=== PATIENT | female | born 1950 | race Caucasian/White ===

== ENCOUNTER 2020-05-09 12:19 | Emergency (ER) | payer MEDICARE, SELFPAY ==
--- NOTE | ~2020-05-09 | XR_ITS ---
XR thoracic spine 2V 05/09/2020 12:52 Indication: Back pain after lifting boxes recently Procedure: 3 views thoracic spine Comparison: Chest x-ray dated 08/07/2019 Findings: There is mild inferior endplate compression deformity of T8, likely chronic. Mild curvature of the thoracic spine. No acute fracture or traumatic malalignment is identified. Mild thoracic spon dylosis. No paraspinal soft tissue abnormality. Osteopenia. Pedicles intact. There are cholecystectom y clips. Impression: 1: No acute abnormality of the thoracic spine identified. 2: Mild inferior endplate compression deformity of T8, likely chronic. 3: Mild thoracic spondylosis. Reviewed, dictated and finalized at location B. Impression: 1: No acute abnormality of the thoracic spine identified. 2: Mild inferior endplate compression deformity of T8, likely chronic. 3: Mild thoracic spondylosis.
[2020-05-09 12:28] VITALS: BP 177/82; PULSE 81; RESP 18; TEMP 36.7; O2SAT 100
--- NOTE | 2020-05-09 12:45 | PC.NURSE ---
Pt taken to Xray
[2020-05-09] MEDS: diazePAM (*CRX) 5 MG TABLET PO (12:57)
[2020-05-09] MEDS: KETOROLAC (*BKC) 60 MG/2 ML VIAL 30 MG IM (12:57)
--- NOTE | 2020-05-09 13:02 | ED.BACK ---
HPI - Back Pain/Injury General Chief Complaint: Back Pain/Injury Stated Complaint: I hurt my back Time Seen by Provider: 05/09/20 12:33 Source: patient and family Mode of arrival: ambulatory Limitations: no limitations History of Present Illness HPI Narrative: Patient is a 69-year-old female who presents to emergency department for evaluation of mid thoracic back pain that began after lifting an object this weekend had a muscle relaxer called in yesterday by primary care which is helped minimally patient denies injury or trauma otherwise denies similar occurrence in the past pain does not radiate patient presents on no distress appears uncomfortable has not taken anything other than her muscle relaxer today Related Data Allergies Allergy/AdvReac Type Severity Reaction Status Date / Time No Known Allergies Allergy Verified 05/09/20 12:35 Review of Systems Review of Systems: All systems reviewed & are unremarkable except as noted in HPI and below PMFSH Past Medical History Medical History Anxiety Arthritis Bronchitis Chronic back pain Depression HTN (hypertension) Hyperlipidemia Post-menopausal UTI (urinary tract infection) Surgical History Surgical History History of appendectomy History of section History of cholecystectomy History of tubal ligation Ventral hernia Family History Family History Mother Diabetes mellitus Family history of cardiovascular disease Family history of dementia Father Hypertension Cerebrovascular accident Grandparent Family history of Parkinson's disease Sibling Family history of kidney stones Family history of malignant neoplasm of breast in first degree relative Social History Social History Smoking status: Never smoker Gender identity (if verbalized by the patient): Female Exam Narrative: Exam Narrative: GENERAL: Well-appearing, well-nourished, and in no acute distress. HEAD: Normocephalic, atraumatic. EYES: PERRLA and EOMI. ENT: Nares clear, no rhinorrhea or epistaxis. Mucous membranes moist. CHEST: Clear to auscultation. No respiratory distress. No wheezes rales or rhonchi HEART: Regular rate and rhythm. No murmur heard. EXTREMITIES: Normal range of motion. No edema. Mid paraspinal thoracic back pain no cervical or lumbar tenderness SKIN: Warm, dry, no rash. NEURO: No focal deficits. Alert and oriented x3. Cranial nerves II through XII grossly intact PSYCH: Normal mood and affect. Course Course Emergency Course: Patient is a 69-year-old female who presents for low back pain patient's injury seems musculoskeletal in nature no acute fractures seen on imaging patient will be managed with medications advised to follow with primary care felt appropriate for outpatient reevaluation Vital Signs Vital signs: Vital Signs Temperature 98.1 F 05/09/20 12:28 Pulse Rate 81 05/09/20 12:28 Respiratory Rate 18 05/09/20 12:28 Blood Pressure 177/82 H 05/09/20 12:28 Pulse Oximetry 100 05/09/20 12:28 Temperature 98.1 F 05/09/20 12:28 Pulse Rate 81 05/09/20 12:28 Respiratory Rate 18 05/09/20 12:28 Blood Pressure 177/82 H 05/09/20 12:28 Pulse Oximetry 100 05/09/20 12:28 MDM - Back Pain/Injury MDM Narrative Medical decision making narrative: Patients pain is positional in nature and localized to back without signs of cord compression or cauda equina based on neurological exam, skeletal exam and history. No fever or other significant factors to suggest osteomyelitis or spinal epidural abscess. No symptoms or signs to suggest pain is referred from abdominal or / cardiopulmonary sources. No pulsatile masses noted on exam. Patient ambulates with steady gait and is stable for outpatient management given case findings
[2020-05-09] MEDS: LIDOCAINE 5% PATCH 1 PATCH TRANSDERM (13:09)
== END 2020-05-09 13:54 | disposition home or self-care (01) ==
PROVIDERS: Emergency Provider Emergency Medicine; PCP Family Medicine
DX: S29.9XXA Unspecified injury of thorax, initial encounter (principal); M19.90 Unspecified osteoarthritis, unspecified site; I10 Essential (primary) hypertension; E78.5 Hyperlipidemia, unspecified; Z87.440 Personal history of urinary (tract) infections; M47.814 Spondylosis without myelopathy or radiculopathy, thoracic region; X50.0XXA Overexertion from strenuous movement or load, initial encounter
CPT/HCPCS: 72070; 96372; 99283; A9270; J1885

== ENCOUNTER 2020-05-30 15:56 | Emergency (ER) | payer MEDICARE, SELFPAY ==
--- NOTE | ~2020-05-30 | XR_ITS ---
XR chest 2V DATE: 05/30/2020 18:25 INDICATION: Chest pain, shortness of breath, left arm and back pain. Hypertension. TECHNIQUE: PA and lateral views COMPARISON: 08/07/2021 view chest FINDINGS: Large hiatal hernia is again noted as well as cholecystectomy. Cardiomegaly. Aortic ectasia and unfolding. No hilar or mediastinal enlargement is evident. No pulmonary infiltrate or consolidation, pleural effusion or pulmonary vascular congestion or pneumo thorax is detected. Diffuse osteopenia. Moderate anterior wedge compression fracture deformity of T8. IMPRESSION: Large hiatal hernia Cardiomegaly, aortic ectasia and unfolding No active pulmonary disease Status post cholecystectomy Moderate anterior wedge compression fracture deformity of T8, new since 08/07/2019 Diffuse osteopenia Reviewed, dictated and finalized at location A. OR COST ANALYST IMPRESSION: Large hiatal hernia Cardiomegaly, aortic ectasia and unfolding No active pulmonary disease Status post cholecystectomy Moderate anterior wedge compression fracture deformity of T8, new since 08/07/19 20 Diffuse osteopenia
--- NOTE | ~2020-05-30 | CT_ITS ---
EXAMINATION: CTA chest PE protocol DATE: 05/30/2020 22:35 INDICATION: Dyspnea, back pain. Elevated d-dimer. TECHNIQUE: Computed tomography angiography (CTA) of the chest was performed with 100 mL Omnipaque-350 intravenous contrast timed to evaluate the pulmonary arteries. Coronal maximum intensity projection 3D-reconstructions were created by the technologist. Automated exposure control and iterative reconst ruction technique were employed. Exam dose: 419.48 mGy-cm total exam DLP. COMPARISON: 05/30/2022 view chest FINDINGS: There is diagnostic contrast enhancement of the pulmonary arteries and no evidence of pulmo nary embolism. No thoracic aortic aneurysm or dissection. The thyroid gland appears unremarkable. No hilar or mediastinal mass lesion or lymphadenopathy. Cardiomegaly. No pericardial or pleural effusion. There are scattered patchy groundglass areas throughout both lungs which may represent small airways disease. There is mild atelectasis involving predominantly the dependent lower lobes. Large hiatal hernia containing virtually the entire stomach. Moderately prominent elevation of the right leaf of the diaphragm. Status post cholecystectomy. Included upper abdominal structures are otherwise unremarkable. Normal m orphology of the adrenal glands. Moderate anterior wedge compression fracture deformity of T8. Diffuse osteopenia. No suspicious osteo lytic or osteoblastic lesions are identified. IMPRESSION: No evidence of pulmonary embolism Cardiomegaly Scattered patchy groundglass areas throughout both lungs which may represent small airways disease; m ild atelectasis primarily at the dependent lower lobes Large hiatal hernia containing nearly the entire stomach T8 moderate compression fracture deformity Reviewed, dictated and finalized at Location A. Reviewed, dictated and finalized at location A. NEER TECHNICAL STAFF IMPRESSION: No evidence of pulmonary embolism Cardiomegaly Scattered patchy groundglass areas throughout both lungs which may represent sm all airways disease; mild atelectasis primarily at the dependent lower lobes Large hiatal hernia containing nearly the entire stomach T8 moderate compression fracture deformity
[2020-05-30 16:56] VITALS: BP 118/85; PULSE 100; RESP 18; TEMP 37.2; O2SAT 99
--- NOTE | 2020-05-30 17:02 | ECG_ITS ---
Measurements Intervals [place] Rate: 94 P: 11 DC: 176 QRS: -47 QRSD: 91 T: 11 QT: 359 QTc: 450 Interpretive Statements SINUS RHYTHM LEFT ANTERIOR FASCICULAR BLOCK MINIMAL Q WAVES- HIGH LATERAL LEADS ABNORMAL ECG Electronically Signed On 05-31-2020 8:16:55 TOLL BRIDGE ATTENDANT by Tomasz Addison D.O.
[2020-05-30 17:18] LABS: Basophils Percent Auto 0.4 % (0.2-1.2); Eosinophils Absolute Auto 0.1 K/mm3 (0-0.3); Eosinophils Percent Auto 1.3 % (0-4.4); Hematocrit 40.9 % (37.0-47.0); Hemoglobin 13.9 g/dL (12.0-15.0); Immature Granulocyte Absolute 0.03 K/mm3 (0.00-0.031); Immature Granulocyte Percent A 0.3 % (0-0.5); Lymphocytes Absolute Auto 2.04 K/mm3 (0.9-3.2); Lymphocytes Percent Auto 21.6 % (18.3-44.2); Mean Corpuscular Hemoglobin 29.7 pg (26-34); Mean Corpuscular Volume 87.4 fl (80-100); Mean Platelet Volume 9.5 fl (7.4-10.4); Monocytes Absolute Auto 0.7 K/mm3 (0.1-0.6); Monocytes Percent Auto 7.4 % (2.6-8.5); Neutrophils Absolute Auto 6.5 K/mm3 (1.3-6.7); Platelet Count Result 285 k/mm3 (150-375); Red Blood Count 4.68 M/mm3 (4.2-5.4); Red Cell Distribution Width 12.4 % (11.5-14.5); White Blood Count 9.5 K/mm3 (4.5-10.0)
[2020-05-30 17:30] LABS: Anion Gap 7 mmol/L (8-16); Blood Urea Nitrogen 15 mg/dL (7-17); Calcium 9.6 mg/dL (8.4-10.2); Carbon Dioxide 34 mmol/L (22-30); Chloride 98 mmol/L (98-107); Estimated Glomerular Filt Rate > 60; Glucose 111 mg/dL (65-105); Potassium 3.5 mmol/L (3.4-5.0); Sodium 139 mmol/L (137-145)
[2020-05-30 17:37] LABS: INR 0.8; Prothrombin Time 12.1 Seconds (11.1-14.7)
[2020-05-30 17:38] LABS: Partial Thromboplastin Time 29.7 SECONDS (22.3-36.8)
[2020-05-30 17:41] LABS: Troponin I < 0.012 ng/mL (0.000-0.034)
--- NOTE | 2020-05-30 20:34 | ED.SOB ---
HPI - SOB/Dyspnea General Chief Complaint: Shortness of Breath/Dyspnea Stated Complaint: short of breath, back pain Time Seen by Provider: 05/30/20 20:27 Source: RN notes reviewed History of Present Illness HPI Narrative: Patient presents to emergency department from home for back pain. Patient states she is been having pain in her back between her shoulder blades on the left side for the past 1 week. States that pain is worse with deep inspiration. States is been associate with mild feeling of shortness of breath. She denies any anterior chest pain denies any fevers or chills nausea vomiting diarrhea or any other symptoms. Patient denies any trauma or injury to the area states she is taking no pain medication today Related Data Allergies Allergy/AdvReac Type Severity Reaction Status Date / Time No Known Allergies Allergy Verified 05/09/20 12:35 Review of Systems Review of Systems: Narrative: Gen.: Denies fevers or chills ENT: Denies congestion Respiratory: Denies shortness of breath or cough CV: Denies chest pain or palpitations GI: Denies abdominal pain nausea, emesis or diarrhea denies burning, urgency, frequency or hematuria Musculoskeletal: Reports upper back pain Neuro: Denies numbness, tingling, weakness or focal weakness Skin: Denies rash Except as documented, all other systems reviewed and negative [facility] Past Medical History Medical History (Updated 05/30/20 @ 23:27 by Ubaldo Renae DO) Anxiety Arthritis Bronchitis Chronic back pain Depression HTN (hypertension) Hyperlipidemia Post-menopausal UTI (urinary tract infection) Surgical History Surgical History History of appendectomy History of section History of cholecystectomy History of tubal ligation Ventral hernia Family History Family History Mother Diabetes mellitus Family history of cardiovascular disease Family history of dementia Father Hypertension Cerebrovascular accident Grandparent Family history of Parkinson's disease Sibling Family history of kidney stones Family history of malignant neoplasm of breast in first degree relative Social History Social History Smoking status: Never smoker Gender identity (if verbalized by the patient): Female Exam Narrative: Exam Narrative: APPEARANCE: No acute distress, nontoxic, resting in bed EYES: EOMI HEENT: Normocephalic, atraumatic, OMM RESPIRATORY: No respiratory distress Clear to auscultation bilaterally with no rhonchi wheezing or rales. CARDIOVASCULAR: Regular rate and rhythm without murmurs rubs or gallops. ABDOMINAL: Soft, nontender, nondistended, no rebound or guarding MUSCULOSKELETAl: Moves all extremities. No clubbing, cyanosis or edema. Back: No midline thoracic or lumbar spine tenderness palpation, tender palpation over left paravertebral muscles T4-6 NEURO: Awake and alert. Following commands, speech normal, no focal deficits SKIN:: Warm, dry. No rashes lesions or abrasions PSYCHIATRIC: Normal affect/mood, Course Course Emergency Course: Patient states back pain is improved with Toradol Discussed with patient results of workup and diagnosis. Discussed need for follow-up with primary care, proper use of medication, and reasons to return to the emergency department. Patient understands and agrees to current treatment plan Vital Signs Vital signs: Vital Signs Temperature 98.9 F 05/30/20 16:56 Pulse Rate 100 05/30/20 16:56 Respiratory Rate 18 05/30/20 16:56 Blood Pressure 118/85 05/30/20 16:56 Pulse Oximetry 99 05/30/20 16:56 Temperature 98.2 F 05/30/20 23:17 Pulse Rate 81 05/30/20 23:17 Respiratory Rate 16 05/30/20 23:17 Blood Pressure 123/83 05/30/20 23:17 Pulse Oximetry 100 05/30/20 23:17 MDM - SOB/Dyspnea MDM Narrative Medical decision making n
[2020-05-30] MEDS: KETOROLAC 30 MG/ML VIAL (*BKC) IV PUSH (20:46)
[2020-05-30 20:49] LABS: Troponin I < 0.012 ng/mL (0.000-0.034)
[2020-05-30] MEDS: ONDANSETRON INJ 4 MG/2 ML VIAL IV PUSH (22:20)
[2020-05-30 23:17] VITALS: BP 123/83; PULSE 81; RESP 16; TEMP 36.8; O2SAT 100
[2020-05-31 14:13] LABS: SARS-CoV-2 RNA PCR Negative
== END 2020-05-30 23:41 | disposition home or self-care (01) ==
PROVIDERS: Emergency Provider Emergency Medicine; PCP Family Medicine
DX: Z20.828 Contact with and (suspected) exposure to other viral communicable diseases (principal); M54.9 Dorsalgia, unspecified; K44.9 Diaphragmatic hernia without obstruction or gangrene; F41.9 Anxiety disorder, unspecified; M19.90 Unspecified osteoarthritis, unspecified site; G89.29 Other chronic pain; F32.9 Major depressive disorder, single episode, unspecified; I10 Essential (primary) hypertension; E78.5 Hyperlipidemia, unspecified; Z87.440 Personal history of urinary (tract) infections
CPT/HCPCS: 36415; 71046; 71275; 80048; 84484; 85025; 85380; 85610; 85730; 87635; 93005; 96374; 96375; 99284; C9803; J1885; J2405; Q9967; U0003

== ENCOUNTER 2021-02-27 15:03 | Outpatient (CLI) | payer MEDICARE, SELFPAY ==
--- NOTE | ~2021-02-27 | MM_ITS ---
EXAMINATION: MM screening shai BI w jerardo HISTORY: Screening TECHNIQUE: Craniocaudal and mediolateral oblique 3-D tomosynthesis images were obtained and synthetic 2-D images were generated. CAD analysis was submitted and interpreted. COMPARISON: 12/30/2017 BREAST PARENCHYMAL COMPOSITION: The breasts are almost entirely fatty. FINDINGS: There is no evidence of suspicious mass, calcification, or architectural distortion to sugg est malignancy in either breast. There has been no suspicious interval change. IMPRESSION: 1. No mammographic evidence of malignancy. 2. Recommend routine screening mammography in one year. BI-RADS Category 1: Negative Reviewed, dictated and finalized at location A.
== END 2021-02-27 15:04 | disposition home or self-care (01) ==
LOC: ANHIMG 15:05
PROVIDERS: PCP Family Medicine; Visit Provider Family Medicine
DX: Z12.31 Encounter for screening mammogram for malignant neoplasm of breast (principal)
CPT/HCPCS: 77063; 77067

== ENCOUNTER 2022-03-20 01:04 | Emergency (ER) | payer MEDICARE, SELFPAY ==
--- NOTE | ~2022-03-20 | XR_ITS ---
EXAMINATION: XR chest 2V DATE: 03/20/2022 02:07 INDICATION: Chest pain. TECHNIQUE: Frontal and lateral views of the chest were obtained. COMPARISON: Chest 2 views 05/30/2020, chest CT 05/30/2020 FINDINGS: There is a large hiatal hernia. No pneumonia, pleural effusion, or pneumothorax. Cardiomega ly is noted. Surgical clips in the right upper quadrant are likely from cholecystectomy. There is a c hronic burst fracture in thoracic spine. IMPRESSION: 1. Cardiomegaly. 2. Large hiatal hernia. Reviewed, dictated and finalized at location A.
[2022-03-20 01:03] VITALS: BP 147/99; PULSE 85; RESP 18; TEMP 37.1; O2SAT 97
--- NOTE | 2022-03-20 01:07 | ECG_ITS ---
Measurements Intervals [place] Rate: 83 P: -1 [place]: 206 QRS: -43 QRSD: 89 T: -6 QT: 382 QTc: 451 Interpretive Statements SINUS RHYTHM LEFT AXIS DEVIATION BORDERLINE T WAVE ABNORMALITY- ANT/INF LEADS BASELINE ARTIFACT- I, II, III, AVR, AVL, AVF, V1 BORDERLINE ECG COMPARED TO ECG 05/30/2020 17:03:38 NO SIGNIFICANT CHANGE Electronically Signed On 03-21-2022 9:28:54 CDT by Tomasz Addison D.O.
[2022-03-20 01:24] LABS: Basophils Percent Auto 0.5 % (0.2-1.2); Eosinophils Absolute Auto 0.1 K/mm3 (0-0.3); Eosinophils Percent Auto 1.5 % (0-4.4); Hematocrit 39.1 % (37.0-47.0); Immature Granulocyte Absolute 0.01 K/mm3 (0.00-0.031); Immature Granulocyte Percent A 0.2 % (0-0.5); Lymphocytes Absolute Auto 2.08 K/mm3 (0.9-3.2); Lymphocytes Percent Auto 33.9 % (18.3-44.2); Mean Corpuscular HGB Conc 33.2 g/dl (32-36); Mean Corpuscular Hemoglobin 29.7 pg (26-34); Mean Corpuscular Volume 89.3 fl (80-100); Mean Platelet Volume 9.4 fl (7.4-10.4); Monocytes Absolute Auto 0.6 K/mm3 (0.1-0.6); Monocytes Percent Auto 9.3 % (2.6-8.5); Neutrophils Absolute Auto 3.4 K/mm3 (1.3-6.7); Neutrophils Percent Auto 54.6 % (45.5-73.1); Platelet Count Result 228 k/mm3 (150-375); Red Blood Count 4.38 M/mm3 (4.2-5.4); Red Cell Distribution Width 12.5 % (11.5-14.5); White Blood Count 6.1 K/mm3 (4.5-10.0)
[2022-03-20 01:35] LABS: Alanine Aminotransferase 24 U/L (6-35); Albumin Level 4.1 g/dL (3.5-5.1); Alkaline Phosphatase 79 U/L (38-126); Anion Gap 0 mmol/L (8-16); Aspartate Amino Transferase 38 U/L (14-36); Blood Urea Nitrogen 16 mg/dL (7-17); Calcium 9.2 mg/dL (8.4-10.2); Carbon Dioxide 32 mmol/L (22-30); Chloride 104 mmol/L (98-107); Estimated Glomerular Filt Rate > 60; Glucose 117 mg/dL (65-110); Lipase 51 U/L (23-300); Potassium 3.8 mmol/L (3.4-5.0); Sodium 136 mmol/L (137-145)
[2022-03-20 01:47] LABS: Troponin I < 0.012 ng/mL (0.000-0.034)
[2022-03-20 01:50] LABS: Prothrombin Time 12.7 Seconds (11.1-14.7)
[2022-03-20 01:52] LABS: Partial Thromboplastin Time 31.3 SECONDS (22.3-36.8)
--- NOTE | 2022-03-20 02:18 | ED.GENADULT ---
HPI - General Adult General Chief complaint: Chest Pain Stated complaint: CHEST PAIN Time Seen by Provider: 03/20/22 01:21 History of Present Illness HPI narrative: Patient is a 71-year-old female who presents the emergency department with chief complaint of chest pain. The patient reports this evening she had discomfort in her chest the patient reports felt like a tightness feeling in her mid chest patient reports no radiation denies diaphoresis denies shortness of breath. The patient reports that she has no prior history of cardiac disease does history of hypertension. Patient states that she has not had a stress test or cardiac catheterization. Patient denies smoking. Patient reports that the pain is resolved by the time she is arrived to the emergency department. Related Data Allergies Allergy/AdvReac Type Severity Reaction Status Date / Time No Known Allergies Allergy Verified 03/20/22 01:19 Review of Systems Review of Systems: A 10 system review of systems was completed on the patient and is negative except for what is stated in the HPI. Nursing and ancillary documentation was reviewed. [facility] Past Medical History Medical History (Updated 03/20/22 @ 05:29 by Goran Infante MD) Anxiety Arthritis Bronchitis Chronic back pain Depression HTN (hypertension) Hyperlipidemia Post-menopausal UTI (urinary tract infection) Surgical History Surgical History History of appendectomy History of section History of cholecystectomy History of tubal ligation Ventral hernia Family History Family History Mother Diabetes mellitus Family history of cardiovascular disease Family history of dementia Father Hypertension Cerebrovascular accident Grandparent Family history of Parkinson's disease Sibling Family history of kidney stones Family history of malignant neoplasm of breast in first degree relative Social History Social History Smoking status: Never smoker Gender identity (if verbalized by the patient): Female Exam Narrative: GENERAL: Well-appearing, well-nourished, and in no acute distress. HEAD: Normocephalic, atraumatic. EYES: PERRLA and EOMI. ENT: Nares clear, no rhinorrhea or epistaxis. Mucous membranes moist. NECK: Supple. CHEST: Clear to auscultation. No respiratory distress. HEART: Regular rate and rhythm. No murmur heard. Normal peripheral pulses. ABDOMEN: Soft, nontender, nondistended, normal active bowel sounds. EXTREMITIES: Normal range of motion. No edema. SKIN: Warm, dry, no rash. NEURO: No focal deficits. Alert and oriented x3. PSYCH: Normal mood and affect. Course Vital Signs Vital signs: Vital Signs Temperature 37.1 C 03/20/22 01:03 Pulse Rate 85 03/20/22 01:03 Respiratory Rate 18 03/20/22 01:03 Blood Pressure 147/99 H 03/20/22 01:03 Pulse Oximetry 97 03/20/22 01:03 Oxygen Delivery Room Air 03/20/22 01:03 Temperature 37.1 C 03/20/22 01:03 Pulse Rate 68 03/20/22 03:34 Respiratory Rate 20 03/20/22 03:34 Blood Pressure 152/79 H 03/20/22 03:34 Pulse Oximetry 99 03/20/22 03:34 Oxygen Delivery Room Air 03/20/22 01:03 Medical Decision Making Vital Signs Vital Signs: Vital Signs Temperature 37.1 C 03/20/22 01:03 Pulse Rate 85 03/20/22 01:03 Respiratory Rate 18 03/20/22 01:03 Blood Pressure 147/99 H 03/20/22 01:03 Pulse Oximetry 97 03/20/22 01:03 Oxygen Delivery Room Air 03/20/22 01:03 Temperature 37.1 C 03/20/22 01:03 Pulse Rate 68 03/20/22 03:34 Respiratory Rate 20 03/20/22 03:34 Blood Pressure 152/79 H 03/20/22 03:34 Pulse Oximetry 99 03/20/22 03:34 Oxygen Delivery Room Air 03/20/22 01:03 Lab Data Result diagrams: 03/20/22 01:18 03/20/22 01:18
[2022-03-20 03:34] VITALS: BP 152/79; PULSE 68; RESP 20; O2SAT 99
[2022-03-20 05:11] LABS: Troponin I < 0.012 ng/mL (0.000-0.034)
[2022-03-20 05:54] VITALS: BP 159/89; PULSE 71; RESP 18; O2SAT 98
== END 2022-03-20 05:54 | disposition home or self-care (01) ==
PROVIDERS: Emergency Provider Emergency Medicine; PCP Family Medicine
DX: R07.89 Other chest pain (principal); I10 Essential (primary) hypertension; E78.5 Hyperlipidemia, unspecified; M19.90 Unspecified osteoarthritis, unspecified site; Z87.440 Personal history of urinary (tract) infections; R94.31 Abnormal electrocardiogram [ECG] [EKG]
CPT/HCPCS: 36415; 71046; 80053; 83690; 84484; 85025; 85610; 85730; 93005; 99284

== ENCOUNTER 2022-06-13 19:11 | Emergency (ER) | payer MEDICARE, SELFPAY ==
[2022-06-13 19:15] VITALS: BP 153/83; PULSE 80; RESP 20; TEMP 36.6; O2SAT 100
--- NOTE | 2022-06-13 19:25 | ED.DENTAL ---
HPI - Dental/Oral General Chief complaint: Dental/Oral Stated complaint: dental Time Seen by Provider: 06/13/22 19:19 Source: RN notes reviewed History of Present Illness HPI Narrative: Patient presents emergency department from home for right dental pain. Patient states he has had dental pain for the past 1 to 2 months. States she has numerous carious teeth and needs to see a dentist but is afraid of the dentist and has not gone. States she has been taking ibuprofen for the symptoms with last dose of ibuprofen approximately 2 hours ago. She states that she has had no fevers or chills states the pain does radiate up into the cheek she denies any difficulty swallowing Related Data Allergies Allergy/AdvReac Type Severity Reaction Status Date / Time No Known Allergies Allergy Verified 03/20/22 01:19 Review of Systems Review of Systems: Gen.: Denies fevers or chills HEENT: See HPI Respiratory: Denies shortness of breath Neuro: Denies numbness, tingling, weakness Skin: Denies rash Endo: Denies DM PMFSH Past Medical History Medical History (Updated 06/13/22 @ 19:27 by Ubaldo Renae DO) Anxiety Arthritis Bronchitis Chronic back pain Depression HTN (hypertension) Hyperlipidemia Post-menopausal UTI (urinary tract infection) Surgical History Surgical History History of appendectomy History of section History of cholecystectomy History of tubal ligation Ventral hernia Family History Family History Mother Diabetes mellitus Family history of cardiovascular disease Family history of dementia Father Hypertension Cerebrovascular accident Grandparent Family history of Parkinson's disease Sibling Family history of kidney stones Family history of malignant neoplasm of breast in first degree relative Social History Social History Smoking status: Never smoker Gender identity (if verbalized by the patient): Female Exam Narrative: APPEARANCE: No acute distress, nontoxic, resting in bed HEENT: Normocephalic, atraumatic, TMs clear bilaterally, nares patent, oral mucosa moist, airway patent, approximate number of tooth #7 is carious and tender to palpation with mild erythema of the gum patient has numerous missing teeth and remaining teeth are all carious there is no swelling of the cheek RESPIRATORY: No respiratory distress MUSCULOSKELETAl: Moves all extremities. NEURO: Awake and alert. Following commands, speech normal, no focal deficits SKIN:: Warm, dry. Normal Color PSYCHIATRIC: Normal affect/mood Course Course Emergency Course: Discussed with patient results of workup and diagnosis. Discussed need for follow-up with primary care, proper use of medication, and reasons to return to the emergency department. Patient understands and agrees to current treatment plan Vital Signs Vital signs: Vital Signs Temperature 97.9 F 06/13/22 19:15 Pulse Rate 80 06/13/22 19:15 Respiratory Rate 20 06/13/22 19:15 Blood Pressure 153/83 H 06/13/22 19:15 Pulse Oximetry 100 06/13/22 19:15 Oxygen Delivery Room Air 06/13/22 19:15 Temperature 97.9 F 06/13/22 19:15 Pulse Rate 80 06/13/22 19:15 Respiratory Rate 20 06/13/22 19:15 Blood Pressure 153/83 H 06/13/22 19:15 Pulse Oximetry 100 06/13/22 19:15 Oxygen Delivery Room Air 06/13/22 19:15 Discharge Plan Discharge Clinical Impression: Dental abscess, Dental caries Patient Disposition: Home, Self-Care Condition: Stable Instructions: Antibiotic Form, Dental Abscess (ED) Additional Instructions: Return for increasing pain fever or any other symptoms of concern Prescriptions: New penicillin V potassium 500 mg tablet 500 mg PO Q8H 10 Days Qty: 30 0RF No Action albuterol sulfate 90 mcg/actuation aerosol roberto amezcua
[2022-06-13] MEDS: ACETAMINOPHEN 500 MG TABLET 1000 MG PO (19:30)
[2022-06-13] MEDS: PENICILLIN V POTASSIUM 250 MG TABLET 500 MG PO (19:30)
== END 2022-06-13 19:45 | disposition home or self-care (01) ==
PROVIDERS: Emergency Provider Emergency Medicine; PCP Family Medicine
DX: K04.7 Periapical abscess without sinus (principal); K02.9 Dental caries, unspecified; I10 Essential (primary) hypertension; E78.5 Hyperlipidemia, unspecified; M19.90 Unspecified osteoarthritis, unspecified site; Z87.440 Personal history of urinary (tract) infections
CPT/HCPCS: 99283; A9270

== ENCOUNTER 2022-06-16 23:55 | Emergency (ER) | payer MEDICARE, SELFPAY ==
--- NOTE | ~2022-06-16 | XR_ITS ---
EXAMINATION: XR chest 2V DATE: 06/17/2022 00:32 INDICATION: Chest pain. Epigastric abdominal pain. TECHNIQUE: Frontal and lateral views of the chest were obtained. COMPARISON: Chest 2 views 03/20/2022, chest CT 06/17/2022 FINDINGS: There is a large hiatal hernia. Marcio B-lines are noted, consistent mild pulmonary edema. No pneumonia, pleural effusion, or pneumothorax. Cardiomegaly is noted. Surgical clips in the right u pper quadrant are likely from cholecystectomy. IMPRESSION: 1. Mild pulmonary edema. 2. Large hiatal hernia. 3. Cardiomegaly. Reviewed, dictated and finalized at location A. IDER SERVICE REPRESENTATIVE
--- NOTE | ~2022-06-16 | CT_ITS ---
EXAMINATION: CTA chest DATE: 06/17/2022 01:34 INDICATION: Bilateral shoulder pain radiating to the chest. TECHNIQUE: Computed tomographic angiography (CTA) of the chest was performed with 100 mL Omnipaque-35 0 intravenous contrast. Automated exposure control and iterative reconstruction technique were employ ed. The dose-length product was 421.43 mGy-cm. Maximum intensity projection 3D-reconstructions of the aorta and other arteries were constructed by the technologist on a separate workstation. COMPARISON: Chest CT 05/30/2020, CT abdomen and pelvis 02/24/2018 FINDINGS: There is mild atelectasis in the lungs. There is smooth septal thickening in the lungs, con sistent with mild pulmonary edema. No pleural effusion. There is a large sliding hiatal hernia. Cardi omegaly is noted. No pericardial effusion. There is no pulmonary embolus. There is mild aortic athero sclerosis. No aneurysm or dissection. In the right hepatic lobe, there is an 11 mm hyperenhancing mas s that is stable from 02/24/2018, likely a hemangioma or focal nodular hyperplasia. There is mild thora cic spondylosis. There is a chronic burst fracture of T8. IMPRESSION: 1. Mild aortic atherosclerosis. No aneurysm or dissection. 2. No pulmonary embolus. 3. Mild pulmonary edema. 4. Cardiomegaly. 5. Large sliding hiatal hernia. Reviewed, dictated and finalized at location A. SLASHER
[2022-06-16 23:57] VITALS: BP 178/109; PULSE 93; RESP 14; O2SAT 92
--- NOTE | 2022-06-17 00:01 | ECG_ITS ---
Measurements Intervals [place] Rate: 93 P: -3 [place]: 188 QRS: -45 QRSD: 89 T: -6 QT: 350 QTc: 436 Interpretive Statements SINUS RHYTHM LEFT ANTERIOR FASCICULAR BLOCK BORDERLINE T WAVE ABNORMALITY- INFERIOR LEADS BASELINE ARTIFACT- I, II, AVR ABNORMAL ECG COMPARED TO ECG 03/20/2022 01:14:12 LEFT ANTERIOR FASCICULAR BLOCK NOW PRESENT Electronically Signed On 06-17-2022 10:40:24 COMMERCIAL SALES MANAGER by Tomasz Addison D.O.
[2022-06-17 00:10] VITALS: BP 151/89
[2022-06-17 00:21] LABS: Basophils Percent Auto 0.4 % (0.2-1.2); Eosinophils Absolute Auto 0.1 K/mm3 (0-0.3); Hematocrit 40.5 % (37.0-47.0); Hemoglobin 13.7 g/dL (12.0-15.0); Immature Granulocyte Absolute 0.01 K/mm3 (0.00-0.031); Immature Granulocyte Percent A 0.1 % (0-0.5); Lymphocytes Absolute Auto 1.79 K/mm3 (0.9-3.2); Mean Corpuscular HGB Conc 33.8 g/dl (32-36); Mean Corpuscular Hemoglobin 29.7 pg (26-34); Mean Corpuscular Volume 87.7 fl (80-100); Mean Platelet Volume 9.4 fl (7.4-10.4); Monocytes Absolute Auto 0.7 K/mm3 (0.1-0.6); Monocytes Percent Auto 9.1 % (2.6-8.5); Neutrophils Absolute Auto 4.6 K/mm3 (1.3-6.7); Neutrophils Percent Auto 63.4 % (45.5-73.1); Platelet Count Result 243 k/mm3 (150-375); Red Blood Count 4.62 M/mm3 (4.2-5.4); Red Cell Distribution Width 12.2 % (11.5-14.5); White Blood Count 7.2 K/mm3 (4.5-10.0)
--- NOTE | 2022-06-17 00:23 | ED.CHESTPAIN ---
HPI - Chest Pain General Chief Complaint: Chest Pain Stated Complaint: bilat. shoulder pain radiates to chest Time Seen by Provider: 06/17/22 00:13 History of Present Illness HPI narrative: Patient is a 71-year-old female with a history of hypertension, hyperlipidemia presenting with chest and back pain. Patient states that she has been having intermittent back pain for the last several weeks. States that she became concerned tonight because it became more severe and sometimes goes to her chest. States that she has chronic nausea and vomiting. She denies shortness of breath, palpitations, lightheadedness. No recent fevers or chills. No cough, numbness or weakness, abdominal pain, diarrhea, dysuria, leg swelling. Related Data Allergies Allergy/AdvReac Type Severity Reaction Status Date / Time No Known Allergies Allergy Verified 06/17/22 00:02 Review of Systems Review of Systems: All systems reviewed & are unremarkable except as noted in HPI and below PMFSH Past Medical History Medical History (Updated 06/18/22 @ 00:00 by Maricarmen Dabrandon) Anxiety Arthritis Bronchitis Chronic back pain Depression HTN (hypertension) Hyperlipidemia Post-menopausal UTI (urinary tract infection) Surgical History Surgical History History of appendectomy History of section History of cholecystectomy History of tubal ligation Ventral hernia Family History Family History Mother Diabetes mellitus Family history of cardiovascular disease Family history of dementia Father Hypertension Cerebrovascular accident Grandparent Family history of Parkinson's disease Sibling Family history of kidney stones Family history of malignant neoplasm of breast in first degree relative Social History Social History Smoking status: Never smoker Gender identity (if verbalized by the patient): Female Exam Narrative: GENERAL: Well-appearing, well-nourished, and in no acute distress. HEAD: Normocephalic, atraumatic. EYES: PERRLA and EOMI. ENT: Nares clear, no rhinorrhea or epistaxis. Mucous membranes moist. NECK: Supple. CHEST: Clear to auscultation. No respiratory distress. HEART: Regular rate and rhythm. No murmur heard. Normal peripheral pulses. left chest wall tenderness ABDOMEN: Soft, nontender, nondistended, normal active bowel sounds. EXTREMITIES: Normal range of motion. No edema. BACK: tenderness over left scapula, no midline tenderness SKIN: Warm, dry, no rash. NEURO: No focal deficits. Alert and oriented x3. PSYCH: Normal mood and affect. Course Vital Signs Vital signs: Vital Signs Pulse Rate 93 06/16/22 23:57 Respiratory Rate 14 06/16/22 23:57 Blood Pressure 178/109 H 06/16/22 23:57 Pulse Oximetry 92 06/16/22 23:57 Oxygen Delivery Room Air 06/16/22 23:57 Temperature 98.3 F 06/17/22 02:55 Pulse Rate 88 06/17/22 05:05 Respiratory Rate 19 06/17/22 05:05 Blood Pressure 136/87 06/17/22 05:05 Pulse Oximetry 99 06/17/22 05:05 Oxygen Delivery Room Air 06/16/22 23:57 MDM - Chest Pain MDM Narrative Medical decision making narrative: Patient is a 71-year-old female presenting with chest and back pain. Patient is hypertensive, otherwise vitals are within normal limits. Exam remarkable for the above. EKG per my interpretation shows normal sinus rhythm, left axis deviation, no ST elevations or depressions. Unchanged from prior EKG. Blood work is unremarkable. Troponins are undetectable x2. CTA chest shows no dissection or pulmonary embolism. On reevaluation, the patient is resting comfortably. Suspect her pain is musculoskeletal given the tenderness over her scapula extending into her shoulder. Looks like she has a long history of chronic back pain. Discussed the reassuring work-up with her. Afsaneh
[2022-06-17 00:30] LABS: Alanine Aminotransferase 31 U/L (6-35); Albumin Level 4.1 g/dL (3.5-5.1); Alkaline Phosphatase 83 U/L (38-126); Anion Gap 9 mmol/L (8-16); Aspartate Amino Transferase 41 U/L (14-36); Bilirubin,Total 0.8 mg/dL (0.2-1.3); Blood Urea Nitrogen 16 mg/dL (7-17); Calcium 8.9 mg/dL (8.4-10.2); Carbon Dioxide 27 mmol/L (22-30); Chloride 104 mmol/L (98-107); Estimated Glomerular Filt Rate > 60; Glucose 124 mg/dL (65-110); Lipase 53 U/L (23-300); Potassium 3.7 mmol/L (3.4-5.0); Sodium 140 mmol/L (137-145)
[2022-06-17 00:34] LABS: INR 0.8; Prothrombin Time 11.1 Seconds (11.1-14.7)
[2022-06-17 00:35] LABS: Partial Thromboplastin Time 25.3 SECONDS (22.3-36.8)
[2022-06-17 00:42] LABS: Troponin I < 0.012 ng/mL (0.000-0.034)
[2022-06-17 01:00] VITALS: BP 150/87; PULSE 74; RESP 16; O2SAT 98
[2022-06-17 02:00] VITALS: BP 155/87; PULSE 80; RESP 16; TEMP 36.8; O2SAT 98
[2022-06-17 02:55] VITALS: BP 144/82; PULSE 81; RESP 16; TEMP 36.8; O2SAT 98
[2022-06-17 03:19] LABS: Troponin I < 0.012 ng/mL (0.000-0.034)
[2022-06-17 05:05] VITALS: BP 136/87; PULSE 88; RESP 19; O2SAT 99
== END 2022-06-17 05:05 | disposition home or self-care (01) ==
PROVIDERS: Emergency Provider Emergency Medicine; PCP Family Medicine
DX: R07.89 Other chest pain (principal); M54.9 Dorsalgia, unspecified; I10 Essential (primary) hypertension; E78.5 Hyperlipidemia, unspecified; M19.90 Unspecified osteoarthritis, unspecified site; Z87.440 Personal history of urinary (tract) infections; I44.4 Left anterior fascicular block; R94.31 Abnormal electrocardiogram [ECG] [EKG]; I70.0 Atherosclerosis of aorta; J81.1 Chronic pulmonary edema; I51.7 Cardiomegaly; K44.9 Diaphragmatic hernia without obstruction or gangrene
CPT/HCPCS: 36415; 71046; 71275; 80053; 83690; 84484; 85025; 85610; 85730; 93005; 99284; Q9967

== ENCOUNTER 2022-11-26 16:58 | Emergency (ER) | payer MEDICARE, SELFPAY ==
--- NOTE | ~2022-11-26 | XR_ITS ---
EXAMINATION: XR chest 2V Exam Date/Time: 11/26/2022 19:50 CDT HISTORY: cough X WEEK HX BRONCHITIS Comparison: 06/09/2022. RESULT: Lines, tubes, and devices: Cholecystectomy clips. Lungs and pleura: Senescent changes. Bibasilar scar/atelectasis. No focal consolidation. Cardiomediastinal silhouette: Stable. Large hiatal hernia. Other: No acute osseous or upper abdominal finding. IMPRESSION: No acute cardiopulmonary process. Reviewed, dictated and finalized at location [facility].
[2022-11-26 17:28] VITALS: BP 127/77; PULSE 95; RESP 16; TEMP 36.9; O2SAT 100
[2022-11-26 18:25] LABS: Influenza A QL RT-PCR Negative (Negative); Influenza B QL RT-PCR Negative (Negative); RSV RNA, RT-PCR Negative (Negative); SARS-CoV-2 RNA PCR Negative (Negative)
--- NOTE | 2022-11-26 19:43 | ED.URI ---
HPI - URI/Sore Throat General Chief Complaint: Upper Respiratory Infection Stated Complaint: cough, negative covid at home, sinus jemma Time Seen by Provider: 11/26/22 19:32 Source: patient, RN notes reviewed and old records reviewed Mode of arrival: ambulatory Limitations: no limitations History of Present Illness HPI Narrative: This is a 72 year old female with history of hypertension and bronchitis who presents for evaluation of cough. Patient states she has sinus drainage for 1 week and that has improved. She has come to ER because she is having cough with green phlegm with chest congestion. She denies fever, chills, nausea, vomiting. She reports chest soreness only with coughing. She took covid test at home and it was negative. She is concerned she may have bronchitis. Related Data Allergies Allergy/AdvReac Type Severity Reaction Status Date / Time No Known Allergies Allergy Verified 11/26/22 19:22 Review of Systems Constitutional: Constitutional: Denies weakness ENT: Reports nasal congestion and Denies sore throat Cardiovascular: Cardiovascular: Denies syncope, Denies rapid heart rate, Denies irregular heart rhythm, Denies leg edema and Denies dyspnea Respiratory: Respiratory: Reports chest congestion, Reports cough, Denies hemoptysis, Reports excessive phlegm production and Denies dyspnea Gastrointestinal: Gastrointestinal: Denies abdominal pain, Denies hematochezia, Denies diarrhea and Denies vomiting Genitourinary: Genitourinary: Denies hematuria and Denies dysuria Musculoskeletal: Musculoskeletal: Denies joint swelling, Denies loss of height and Denies muscle weakness Neurologic: Denies syncope, Denies focal weakness and Denies weakness PMFSH Past Medical History Medical History Anxiety Aortic ectasia, unspecified site Arthritis Atherosclerosis of aorta Bronchitis Cerebral atherosclerosis Chronic back pain Generalized anxiety disorder HTN (hypertension) Hyperlipidemia Major depressive disorder, recurrent, moderate Obesity Post-menopausal Surgical History Surgical History History of appendectomy History of section History of cholecystectomy History of tubal ligation History of ventral hernia repair Family History Family History Mother Diabetes mellitus Family history of cardiovascular disease Family history of dementia Father Hypertension Cerebrovascular accident Grandparent Family history of Parkinson's disease Sibling Family history of kidney stones Family history of malignant neoplasm of breast in first degree relative Social History Social History Smoking status: Never smoker Gender identity (if verbalized by the patient): Female Exam Const: General: no acute distress and alert Nutritional Appearance: well nourished Orientation/consciousness: patient oriented x3 Limitations: no limitations HENMT: Head: normal to inspection Ears: external ears normal and TM's normal bilaterally Face/Nose/Sinus: Normal external nose present Face and sinus: normal facial exam and sinuses nontender Mouth: Yes Normal oral and palatal mucosa present, Yes lip normal and Yes moist mucous membranes Throat: posterior oropharynx normal Eyes: EOM: EOMs intact bilaterally Neck: Neck: normal visual inspection Chest: Chest palpation & inspection: normal inspection of the chest Resp: Effort & Inspection: normal respiratory effort Auscultation: clear to auscultation bilaterally Cardio: Rate: regular rate Rhythm: regular rhythm Heart sounds: no murmurs GI: GI Palp: Yes Soft to palpation, No Tenderness to palpation present (GI), No Guarding due to palpation present (GI) and No Rigid due to palpation Auscultation: normal bowel sounds Skin: General skin
[2022-11-26 20:49] VITALS: BP 149/88; PULSE 88; RESP 16; O2SAT 97
== END 2022-11-26 20:50 | disposition home or self-care (01) ==
PROVIDERS: Family Medicine; Emergency Provider General Practice; PCP Family Medicine
DX: J20.9 Acute bronchitis, unspecified (principal); I10 Essential (primary) hypertension; M19.90 Unspecified osteoarthritis, unspecified site; I70.0 Atherosclerosis of aorta; I77.819 Aortic ectasia, unspecified site; I67.2 Cerebral atherosclerosis; E78.5 Hyperlipidemia, unspecified; E66.9 Obesity, unspecified; Z68.39 Body mass index [BMI] 39.0-39.9, adult; Z90.49 Acquired absence of other specified parts of digestive tract
CPT/HCPCS: 71046; 87637; 99283

== ENCOUNTER 2023-10-22 03:03 | Emergency (ER) | payer MEDICARE, SELFPAY ==
--- NOTE | ~2023-10-22 | CT_ITS ---
CT ANGIOGRAM NECK AND HEAD History: Facial numbness. Technique: Axial noncontrast imaging of the brain was performed. Serial spiral axial images through t he head and neck were then obtained during arterial phase IV injection of 100 cc of Omnipaque 350. 3- D postprocessing and MIP images were then reconstructed on the remote workstation. Dose reduction diane hnique was used on this scan by utilizing automated exposure control and iterative reconstruction diane hnique. The dose-length product (DLP) was 1446.68 mGy-cm. CTA neck findings: Bilateral vertebral are patent. Bilateral common carotid, internal carotid, exter nal carotid arteries are patent. No large vessel occlusion. No stenosis or aneurysm. The proximal rig ht internal carotid artery demonstrates 0% stenosis relative to the normal distal artery lumen diamet er. The proximal left internal carotid artery demonstrates 0% stenosis relative to the normal distal artery lumen diameter. There is mild patchy groundglass opacity/mosaic attenuation pattern in the upper lobes. CTA head findings: Distal vertebral arteries, basilar artery, and posterior cerebral arteries are pat ent. Distal internal carotid arteries, middle cerebral arteries, and anterior cerebral arteries are p atent. No large vessel occlusion. No stenosis or aneurysm. Axial noncontrast imaging of brain demonstrate no acute infarct, intracranial hemorrhage, or mass les ion. There are mild chronic microvascular ischemic changes bilaterally. Ventricles and subarachnoid s paces are mildly dilated. No mass effect or midline shift. Paranasal sinuses and mastoid air cells ar e clear. Impression: No vascular abnormality. Mosaic attenuation pattern in the upper lobes. Consider mild pulmonary edema, bronchiolitis, hypersen sitivity pneumonitis. No acute abnormalities in the brain on noncontrast imaging. Reviewed, dictated and finalized at location . Impression: No vascular abnormality. Mosaic attenuation pattern in the upper lobes. Consider mild pulmonary edema, b ronchiolitis, hypersensitivity pneumonitis. No acute abnormalities in the brain on noncontrast imaging.
[2023-10-22 03:01] VITALS: BP 155/84; PULSE 80; RESP 12; TEMP 36.2; O2SAT 100
--- NOTE | 2023-10-22 03:08 | ECG_ITS ---
Measurements Intervals [place] Rate: 71 P: -23 OR: 173 QRS: -44 QRSD: 84 T: -6 QT: 391 QTc: 426 Interpretive Statements SINUS RHYTHM BASELINE ARTIFACT LEFT AXIS DEVIATION PATTERN CONSISTENT WITH PULMONARY DISEASE BORDERLINE ECG COMPARED TO ECG 06/17/2022 00:03:18 LEFT-AXIS DEVIATION NOW PRESENT Electronically Signed On 10-22-2023 14:30:55 CDT by Efrem Pedraza M.D.
[2023-10-22 03:16] LABS: Basophils Percent Auto 0.5 % (0.2-1.2); Eosinophils Absolute Auto 0.1 K/mm3 (0-0.3); Eosinophils Percent Auto 1.9 % (0-4.4); Hematocrit 41.5 % (37.0-47.0); Hemoglobin 13.8 g/dL (12.0-15.0); Immature Granulocyte Absolute 0.01 K/mm3 (0.00-0.031); Immature Granulocyte Percent A 0.2 % (0-0.5); Lymphocytes Absolute Auto 2.32 K/mm3 (0.9-3.2); Lymphocytes Percent Auto 36.5 % (18.3-44.2); Mean Corpuscular HGB Conc 33.3 g/dl (32-36); Mean Corpuscular Volume 90.2 fl (80-100); Mean Platelet Volume 9.3 fl (7.4-10.4); Monocytes Absolute Auto 0.6 K/mm3 (0.1-0.6); Monocytes Percent Auto 9.3 % (2.6-8.5); Neutrophils Absolute Auto 3.3 K/mm3 (1.3-6.7); Neutrophils Percent Auto 51.6 % (45.5-73.1); Platelet Count Result 221 k/mm3 (150-375); Red Cell Distribution Width 12.6 % (11.5-14.5); White Blood Count 6.4 K/mm3 (4.5-10.0)
[2023-10-22 03:19] VITALS: PULSE 74
[2023-10-22 03:29] LABS: Alanine Aminotransferase 21 U/L (6-35); Albumin Level 4.2 g/dL (3.5-5.1); Alkaline Phosphatase 81 U/L (38-126); Anion Gap 6 mmol/L (4-12); Aspartate Amino Transferase 32 U/L (14-36); Bilirubin,Total 1.2 mg/dL (0.2-1.3); Blood Urea Nitrogen 21 mg/dL (7-17); Calcium 9.8 mg/dL (8.4-10.2); Carbon Dioxide 29 mmol/L (22-30); Chloride 103 mmol/L (98-107); Estimated Glomerular Filt Rate > 60; Glucose 113 mg/dL (65-110); Sodium 138 mmol/L (137-145)
--- NOTE | 2023-10-22 03:41 | ED.GENADULT ---
HPI - General Adult General Chief complaint: Unspecified Stated complaint: RIGHT FACE NUMBNESS AND PAIN Time Seen by Provider: 10/22/23 03:39 History of Present Illness HPI narrative: Patient is a 73-year-old female who presents to the emergency department this morning complaining of right-sided facial numbness and pain. Patient states that she went to bed feeling fine woke these symptoms approximately 1 hour prior to arrival. Patient denies any sharp shooting like nerve like pain, and is unable to characterize the pain, stating that it just hurts. Pain is mild and patient denies right eye pain or right ear pain or any recent rashes to her right face. Patient also admits that compared to her left face she feels as though her right face feels slightly numb. No facial droop. patient denies any similar symptoms in the past, denies any recent falls or trauma, denies any history of strokes or any current blood thinner use. Patient is also denying any headaches, dizziness, blurry visions, focal weakness, or gait instability. She denies any recent fevers or chills. There are no other modifying, alleviating, or precipitating factors at this time. Related Data Allergies Allergy/AdvReac Type Severity Reaction Status Date / Time No Known Allergies Allergy Verified 10/22/23 03:09 Review of Systems Review of Systems: All systems are reviewed and are negative unless stated otherwise in the HPI. [facility] Past Medical History Medical History Anxiety Aortic ectasia, unspecified site Arthritis Atherosclerosis of aorta Bronchitis Cerebral atherosclerosis Chronic back pain Generalized anxiety disorder HTN (hypertension) Hyperlipidemia Major depressive disorder, recurrent, moderate Obesity Post-menopausal Surgical History Surgical History History of appendectomy History of section History of cholecystectomy History of tubal ligation History of ventral hernia repair Family History Family History Mother Diabetes mellitus Family history of cardiovascular disease Family history of dementia Father Hypertension Cerebrovascular accident Grandparent Family history of Parkinson's disease Sibling Family history of kidney stones Family history of malignant neoplasm of breast in first degree relative Social History Social History Smoking status: Never smoker Alcohol intake: never Substance use: never Substance use type: does not use Lack of Transportation: YES Lack of Food: Sometimes True Current Housing: I Have Housing Concerned About Future Housing: YES Difficulty Paying Gas/Electric Bills: YES Difficulty Paying for Meds: YES Currently Unemployed: No Education: High School Diploma/GED Difficulty w/ Childcare or Family Care: No Living arrangements: with family Occupation/Education: unemployed Gender identity (if verbalized by the patient): Female Sexual Orientation (if Verbalized by the Patient): Straight or Heterosexual Spiritual care concerns: No Exam Narrative: General: Alert, awake, afebrile, in no acute distress. HEENT: PERRL, no rhinorrhea, no post nasal drip, oropharynx clear. Neck: Trachea midline, no JVD, no lymphadenopathy. Cardiovascular: Regular rate and rhythm, no murmurs, rubs or gallops, no peripheral edema. Respiratory: Clear to auscultation bilaterally, no tachypnea, no wheezing, no rhonchi, no rubs, no respiratory distress. Abdomen: Soft, nontender, nondistended, no rebound, no guarding, no peritoneal signs. Musculoskeletal: No joint swelling or deformity, normal muscle tone. Skin: No rashes or petechia, no signs of infection. Psychiatric: Alert and oriented, normal behavior and judgment for situation. Neurological: Alert and oriented to pers
[2023-10-22 06:55] VITALS: BP 104/75; PULSE 81; RESP 15; O2SAT 98
== END 2023-10-22 07:05 | disposition home or self-care (01) ==
PROVIDERS: Emergency Provider Emergency Medicine; PCP Family Medicine
DX: R51.9 Headache, unspecified (principal); R20.0 Anesthesia of skin; I10 Essential (primary) hypertension; E78.5 Hyperlipidemia, unspecified; E66.9 Obesity, unspecified; Z68.32 Body mass index [BMI] 32.0-32.9, adult; F33.9 Major depressive disorder, recurrent, unspecified
CPT/HCPCS: 36415; 70496; 70498; 80053; 83735; 85025; 93005; 99284; Q9967

== ENCOUNTER 2023-11-03 12:03 | Outpatient (CLI) | payer MEDICARE, SELFPAY ==
--- NOTE | ~2023-11-03 | MR_ITS ---
MRI of the brain Clinical History: Paresthesia Technique: Axial and sagittal T1-weighted images were acquired. These were followed by axial T2-weigh jan, diffusion weighted, gradient, and FLAIR images. Findings: There is no acute infarct, internal hemorrhage, mass lesion. There are moderate chronic whi te matter changes in the periventricular white matter bilaterally. Ventricles and subarachnoid spaces are minimally dilated. Orbits are unremarkable. Paranasal sinuses and mastoid air cells are clear. Major intracranial flow voids appear intact. Sagittal midline structures are intact. IMPRESSION: No acute infarct, intracranial hemorrhage, or mass lesion. Moderate chronic microvascular ischemic changes. Reviewed, dictated and finalized at [facility].
== END 2023-11-03 12:04 | disposition home or self-care (01) ==
PROVIDERS: PCP Family Medicine; Visit Provider Family Medicine
DX: I67.82 Cerebral ischemia (principal); R20.0 Anesthesia of skin
CPT/HCPCS: 70551

== ENCOUNTER 2024-08-16 17:09 | Emergency (ER) | payer MEDICARE, SELFPAY ==
--- NOTE | ~2024-08-16 | XR_ITS ---
EXAMINATION: XR chest 2V DATE: 08/16/2024 19:04 INDICATION: Weakness. Cough. Congestion. TECHNIQUE: Frontal and lateral views of the chest were obtained. COMPARISON: Chest 2 views 11/26/2022, chest CT 05/30/2020 FINDINGS: There is mild atelectasis in the lower lung zones. No pleural effusion or pneumothorax. The heart size is normal. There is a large hiatal hernia. Surgical clips in the right upper quadrant are likely from cholecystectomy. There is a chronic compression fracture in mid thoracic spine. IMPRESSION: 1. Mild atelectasis in the lower lung zones. 2. Large hiatal hernia. Reviewed, dictated and finalized at location A. E GROOMER
--- NOTE | ~2024-08-16 | CT_ITS ---
EXAMINATION: CTA chest PE protocol DATE: 08/16/2024 22:42 INDICATION: Chest pain and shortness of breath. TECHNIQUE: Computed tomography angiography (CTA) of the chest was performed with 100 mL Omnipaque-350 intravenous contrast timed to evaluate the pulmonary arteries. Coronal maximum intensity projection 3D-reconstructions were created by the technologist. Automated exposure control and iterative reconst ruction technique were employed. The dose-length product was 305.64 mGy-cm. COMPARISON: Chest CT 06/17/2022 FINDINGS: There is peripheral septal thickening in the lungs. No bronchiectasis or honeycombing. No p leural effusion. Cardiomegaly is noted. There are coronary artery calcifications. No pericardial effu [place]. There is no pulmonary embolus. There is a large sliding hiatal hernia. There are changes of cho lecystectomy. There is mild thoracic spondylosis. There is a chronic burst fracture of T8. IMPRESSION: 1. No pulmonary embolus. 2. Peripheral septal thickening in the lungs, which may be mild pulmonary edema and/or chronic inters titial lung disease. 3. Large sliding hiatal hernia. Reviewed, dictated and finalized at location A. N SUPPLY LOAD BUILDER IMPRESSION: 1. No pulmonary embolus. 2. Peripheral septal thickening in the lungs, which may be mild pulmonary edema and/or chronic interstitial lung disease. 3. Large sliding hiatal hernia.
[2024-08-16 17:21] VITALS: BP 114/71; PULSE 98; RESP 18; TEMP 36.6; O2SAT 98
--- NOTE | 2024-08-16 18:15 | ED.URI ---
HPI - URI/Sore Throat General Chief Complaint: Upper Respiratory Infection Stated Complaint: FLU S/SX ?LOW BP Time Seen by Provider: 08/16/24 18:16 Focused HPI: Patient is a 74 y/o female who presents to the ED with c/o weakness and cough. Patient reports she has been sick for the past 1 week with cough, congestion, body aches. States her grandson has been sick with similar sx's. States she has been feeling lightheaded and short of breath with exertion. She feels weak and fatigued overall. Denies fevers, chest pain. Denies focal weakness, N/V. Denies previous lung issues. GENERAL: Elderly but well-appearing, obese with BMI of 30.7, and in no acute distress. HEAD: Normocephalic, atraumatic. CHEST: No respiratory distress. Mild rhonchi in R lower lung. HEART: Regular rate and rhythm.? NEURO: ?Alert and oriented x3. Patient screened in triage and initial orders placed.? ?Additional care and disposition to be based upon?diagnostic testing and treatment. Source: patient Mode of arrival: ambulatory Limitations: no limitations History of Present Illness HPI Narrative: Patient is a 74 y/o female who presents to the ED with c/o weakness and cough. Patient reports she has been sick for the past 1 week with cough, congestion, body aches. States her grandson has been sick with similar sx's. States she has been feeling intermittently lightheaded and short of breath with exertion. She feels weak and fatigued overall. Denies fevers, chest pain. Denies focal weakness, N/V. Denies previous lung issues. Related Data Allergies Allergy/AdvReac Type Severity Reaction Status Date / Time No Known Allergies Allergy Verified 08/16/24 17:10 Review of Systems Review of Systems: All systems reviewed & are unremarkable except as noted in HPI. All systems reviewed & are unremarkable except as noted in HPI and below PMFSH Past Medical History Medical History Atherosclerosis of aorta Obesity Generalized anxiety disorder Aortic ectasia, unspecified site Major depressive disorder, recurrent, moderate Cerebral atherosclerosis Anxiety Chronic back pain Arthritis Hyperlipidemia HTN (hypertension) Bronchitis Surgical History Surgical History History of ventral hernia repair History of section History of tubal ligation History of cholecystectomy History of appendectomy Family History Family History Mother Diabetes mellitus Family history of cardiovascular disease Family history of dementia Father Hypertension Cerebrovascular accident Grandparent Family history of Parkinson's disease Sibling Family history of kidney stones Family history of malignant neoplasm of breast in first degree relative Social History Social History Smoking status: Never smoker Alcohol intake: never Substance use: never Substance use type: does not use Do You Feel Safe in your Home?: Yes Lack of Transportation: YES Lack of Food: Sometimes True Current Housing: I Have Housing Concerned About Future Housing: YES Difficulty Paying Gas/Electric Bills: YES Difficulty Paying for Meds: YES Currently Unemployed: No Education: High School Diploma/GED Difficulty w/ Childcare or Family Care: No Living arrangements: with family Occupation/Education: unemployed Gender identity (if verbalized by the patient): Female Sexual Orientation (if Verbalized by the Patient): Straight or Heterosexual Spiritual care concerns: No Exam Narrative: GENERAL: Elderly but well-appearing, obese with BMI of 30.7, and in no acute distress. HEAD: Normocephalic, atraumatic. CHEST: Airway patent, respirations nonlabored. No respiratory distress. Mild rhonchi in R lower lung. HEART: Regular rate and rhythm.?Normal peripheral pulses. ABD: Soft, nondistended. MSK: No gross deformities. NEURO: ?Alert and oriented x3. Speech clear. No focal deficits PSYCHIATRIC: Normal mood and affect. Course Vital Signs Vital signs: Vital Signs Temperature 97.8 F 08/16/24 17:21 Pulse Rate 98 08/16/24 17:21 Respiratory Rate 18 08/16/24 17:21 Blood Pressure 114/71 08/16/24 17:21 Pulse Oximetry 98 08/16/24 17:21 Oxygen Delivery Room Air 08/16/24 17:21 Temperature 98.4 F 08/16/24 23:35 Pulse Rate 94 08/16/24 22:25 Respiratory Rate 17 08/16/24 22:25 Blood Pressure 123/86 08/16/24 22:25 Pulse Oximetry 100 08/16/24 22:25 Oxygen Delivery Room Air 08/16/24 21:20 MDM - URI/Sore Throat MDM Narrative Medical decision making narrative: MSE by CHRIS in triage. Care resumed by myself. Patient presented to ED with 1 week history of URI symptoms. Reporting grandson has had similar symptoms. Vital signs are stable upon arrival. Patient is afebrile. In no acute distress. No respiratory distress. Initial chest x-ray is clear. Does show large hiatal hernia which is chronic. Basic laboratory studies with white blood cell count of 3.1. Stable H&H. CMP with potassium of 3.0. Given oral replacement. Electrolytes are otherwise stable. Magnesium within normal range. Stable kidney function. EKG without concerning ST changes. Troponin is undetectable. BNP is within normal range. D-dimer was mildly elevated to 1.06. CTA chest was obtained and no evidence of PE. Does show mild pulmonary edema versus chronic lung disease. BNP here is within again normal range. Suspect chronic lung disease. Influenza A positive. Consistent with clinical picture. Discussed lab and imaging findings with patient. Discussed continued management of Influenza. Patient has been hemodynamically stable here. Vital signs have remained stable. She remains in no acute distress. Feel she is safe for discharge home at this time. She is in agreement with this plan. Feels comfortable going home. Does not wish to be admitted. Discussed strict return precautions. Otherwise recommended follow-up with PCP for further evaluation. Patient is in agreement with plan. Discharged in stable condition. Medical Records Attestation: I reviewed the patient's medical records. Lab Data Attestation: I reviewed the patient's lab results. 08/16/24 21:42 08/16/24 21:42 Labs: Lab Results 08/16/24 08/16/24 Range/Units 21:41 21:42 WBC 3.1 L (4.5-10.0) K/mm3 RBC 4.46 (4.2-5.4) M/mm3 Hgb 13.4 (12.0-15.0) g/dL Hct 39.5 (37.0-47.0) % MCV 88.6 (80-100) fl MCH 30.0 (26-34) pg MCHC 33.9 (32-36) g/dl RDW 12.2 (11.5-14.5) % Plt Count 104 L D (150-375) k/mm3 MPV 10.7 H (7.4-10.4) fl Immature Gran % (Auto) Not Reportable Neut % (Auto) Not Reportable Lymph % (Auto) Not Reportable [place] % (Auto) Not Reportable Eos % (Auto) Not Reportable Baso % (Auto) Not Reportable Lymph # (Auto) Not Reportable [place] # (Auto) Not Reportable Eos # (Auto) Not Reportable Baso # (Auto) Not Reportable Abs Immat Gran (auto) Not Reportable Absolute Neuts (auto) Not Reportable Absolute Nucleated RBC Not Reportable Total Counted 100 Neutrophils % (Manual) 39 L (46-73) % Band Neutrophils % 1 (0-6) % Lymphocytes % (Manual) 52.0 H (18-44) % Monocytes % (Manual) 7 (3-9) % Eosinophils % (Manual) 1 (0-4) % Nucleated RBC % Not Reportable Abs Neuts (Manual) 1.24 L (1.7-7.2) K/mm3 Abs Lymphs (Manual) 1.61 (1.1-4.5) K/mm3 Abs Monocytes (Manual) 0.21 (0.1-0.90) K/mm3 Absolute Eos (Manual) 0.03 (0.02-0.50) K/mm3 Platelet Estimate Decreased (Adequate) % Immature Plt Fraction 6.2 (0.9-11.2) % Schistocytes None seen PT 12.7 (11.1-14.7) Seconds INR 0.9 APTT 27.9 (22.3-36.8) Seconds D-Dimer 1.06 H (<0.48) ug/mL Sodium 138 (137-145) mmol/L Potassium 3.0 L (3.4-5.0) mmol/L Chloride 102 (98-107) mmol/L Carbon Dioxide 29 (22-30) mmol/L Anion Gap 7 (4-12) mmol/L BUN 19 H (7-17) mg/dL Creatinine 0.85 (0.7-1.0) mg/dL Estim Creat Clear Calc Not Reportable Estimated GFR > 60 (59 - ) Glucose 122 H (65-110) mg/dL Calcium 9.2 (8.4-10.2) mg/dL Magnesium 1.9 (1.6-2.3) mg/dL Total Bilirubin 0.6 (0.2-1.3) mg/dL AST 47 H (14-36) U/L ALT 26 (6-35) U/L Alkaline Phosphatase 75 (38-126) U/L Troponin I < 0.012 (0.000-0.034) ng/mL NT-Pro-B Natriuret Pep 51 (19.9-100) pg/mL Total Protein 7.0 (6.3-8.2) g/dL Albumin 4.0 (3.5-5.1) g/dL Influenza A (RT-PCR) Positive A (Negative) Influenza B (RT-PCR) Negative (Negative) RSV (RT-PCR) Negative (Negative) SARS-CoV-2 RNA (RT-PCR) Negative (Negative) Imaging Data Attestation: I personally reviewed and interpreted this imaging study as follows: Radiologist's impression: ITS Impressions Chest X-Ray 08/16/24 19:15 IMPRESSION: 1. Mild atelectasis in the lower lung zones. 2. Large hiatal hernia. Chest CTA 08/16/24 22:44 IMPRESSION: 1. No pulmonary embolus. 2. Peripheral septal thickening in the lungs, which may be mild pulmonary edema and/or chronic interstitial lung disease. 3. Large sliding hiatal hernia. ECG Data EKG #1: Attestation: I personally reviewed and interpreted this ECG as follows: ECG completion date: 08/16/24 ECG completion time: 21:27 EKG Interpretation: normal rate (92), sinus rhythm and no ST changes Discharge Plan Discharge Clinical Impression: Influenza A Patient Disposition: Home, Self-Care Condition: Stable Instructions: Antibiotic Form, Influenza (ED), Viral Syndrome (ED), Cold Symptoms (ED) Additional Instructions: You were diagnosed with Influenza A today. Isolate at home as you are contagious. Stay well-hydrated at home. Recommend electrolyte rich fluids, Gatorade, Pedialyte, body armor. Utilize Tessalon Perles as needed for cough. Recommend Tylenol and Ibuprofen for discomfort and/or fevers. Recommend [id number] cough and cold medicines for symptom relief, Delsym, Mucinex, DayQuil, NyQuil, Sudafed, Robitussin, TheraFlu. Follow with primary care doctor within the next 1 week for further evaluation. Return to the ED if you experience chest pain, difficulty breathing, unable to keep down food or drink, severe pain, severe weakness, or any other symptoms of concern. Patient Language: Hebrew Prescriptions: New benzonatate 200 mg capsule 200 mg PO TID PRN (Reason: cough) Qty: 20 0RF No Action ezetimibe 10 mg tablet 10 mg PO DAILY Qty: 90 1RF albuterol sulfate 90 mcg/actuation HFA aerosol inhaler 2 inh inhalation QID PRN (Reason: shortness of breath or wheezing) Qty: 6.7 0RF losartan 100 mg tablet See Rx Instructions .ROUTE .COMPLEX Qty: 90 3RF Dose Instruction: TAKE 1 TABLET BY MOUTH DAILY Rx Instructions: TAKE 1 TABLET BY MOUTH DAILY Follow-up/Referrals: Yosef Bob MD [Primary Care Provider] - Time of Disposition: 23:24
--- NOTE | 2024-08-16 18:17 | ECG_ITS ---
Test Date: 2024-08-16 21:27:55 Measurements Intervals [place] Rate: 92 P: 5 [place]: 187 QRS: -56 QRSD: 91 T: 19 QT: 351 QTc: 435 Interpretive Statements SINUS RHYTHM LEFT ANTERIOR FASCICULAR BLOCK [QRS AXIS <= -45, QR IN I, RS IN II] No previous ECG available for comparison Electronically Signed On 08-17-2024 16:11:48 CLINICAL CYTOGENETICIST SCIENTIST by Geri Dial M.D.
[2024-08-16 21:20] VITALS: O2SAT 98
[2024-08-16 21:50] LABS: Hematocrit 39.5 % (37.0-47.0); Hemoglobin 13.4 g/dL (12.0-15.0); Immature Platelet Fraction Pct 6.2 % (0.9-11.2); Mean Corpuscular HGB Conc 33.9 g/dl (32-36); Mean Corpuscular Volume 88.6 fl (80-100); Mean Platelet Volume 10.7 fl (7.4-10.4); Platelet Count Result 104 k/mm3 (150-375); Red Blood Count 4.46 M/mm3 (4.2-5.4); Red Cell Distribution Width 12.2 % (11.5-14.5); White Blood Count 3.1 K/mm3 (4.5-10.0)
[2024-08-16 21:58] LABS: Alanine Aminotransferase 26 U/L (6-35); Alkaline Phosphatase 75 U/L (38-126); Anion Gap 7 mmol/L (4-12); Aspartate Amino Transferase 47 U/L (14-36); Bilirubin,Total 0.6 mg/dL (0.2-1.3); Blood Urea Nitrogen 19 mg/dL (7-17); Calcium 9.2 mg/dL (8.4-10.2); Carbon Dioxide 29 mmol/L (22-30); Chloride 102 mmol/L (98-107); Estimated Glomerular Filt Rate > 60; Glucose 122 mg/dL (65-110); Sodium 138 mmol/L (137-145)
[2024-08-16 22:03] LABS: INR 0.9; Prothrombin Time 12.7 Seconds (11.1-14.7)
[2024-08-16 22:04] LABS: Partial Thromboplastin Time 27.9 Seconds (22.3-36.8)
[2024-08-16 22:06] LABS: D Dimer 1.06 ug/mL (<0.48)
[2024-08-16 22:09] LABS: NT Pro B Type Natriuretic Pept 51 pg/mL (19.9-100); Troponin I < 0.012 ng/mL (0.000-0.034)
[2024-08-16 22:18] LABS: Band Neutrophils Percent 1 % (0-6); Eosinophils Absolute Manual 0.03 K/mm3 (0.02-0.50); Eosinophils Percent Manual 1 % (0-4); Lymphocytes Absolute Manual 1.61 K/mm3 (1.1-4.5); Monocytes Absolute Manual 0.21 K/mm3 (0.1-0.90); Monocytes Percent Manual 7 % (3-9); Neutrophils Absolute Manual 1.24 K/mm3 (1.7-7.2); Neutrophils Percent Manual 39 % (46-73); Total Cells Counted 100
[2024-08-16 22:19] LABS: Platelet Estimate Decreased (Adequate); Schistocytes None Seen
[2024-08-16] MEDS: POTASSIUM CHLORIDE 20 MEQ ER TABLET 40 MEQ PO (22:20)
[2024-08-16 22:25] VITALS: BP 123/86; PULSE 94; RESP 17; O2SAT 100
[2024-08-16 22:27] LABS: Influenza A QL RT-PCR Positive (Negative); Influenza B QL RT-PCR Negative (Negative); RSV RNA, RT-PCR Negative (Negative); SARS-CoV-2 RNA PCR Negative (Negative)
[2024-08-16 22:33] LABS: Magnesium 1.9 mg/dL (1.6-2.3)
[2024-08-16 23:35] VITALS: TEMP 36.9
== END 2024-08-16 23:30 | disposition home or self-care (01) ==
PROVIDERS: Emergency Provider Physician Assistant; PCP Family Medicine
DX: J10.1 Influenza due to other identified influenza virus with other respiratory manifestations (principal); E78.5 Hyperlipidemia, unspecified; I10 Essential (primary) hypertension; F41.8 Other specified anxiety disorders; E66.9 Obesity, unspecified; Z68.30 Body mass index [BMI] 30.0-30.9, adult; Z20.822 Contact with and (suspected) exposure to COVID-19
CPT/HCPCS: 36415; 71046; 71275; 80053; 83735; 83880; 84484; 85025; 85055; 85380; 85610; 85730; 87637; 93005; 99284; A9270; Q9967

== ENCOUNTER 2025-03-25 21:36 | Emergency (ER) | payer MEDICARE, SELFPAY ==
[2025-03-25] VITALS (14 sets, daily range): BP systolic 144–175; BP diastolic 70–116; PULSE 81; RESP 16; TEMP 36.8; O2SAT 97–100
--- NOTE | 2025-03-25 22:02 | ED_ITS ---
HPI - Nausea/Vomiting/Diarrhea General Chief complaint: Nausea/Vomiting/Diarrhea Stated complaint: N/V since 1100 History of Present Illness HPI Narrative: Patient is a 74-year-old female presents to the ER with an inability to keep down any p.o. intake. She reports her symptoms started around 11:30 today. Patient denies any acute abdominal pain, acute back pain, recent fevers, urinary symptoms, or diarrhea. She denies any recent alcohol or drug use. Patient endorses a history of cholecystectomy, hernia, and high blood pressure. She endorses chronic RUQ abdominal pain that radiates to her R back, which has been evaluated by her PCP. Related Data Allergies Allergy/AdvReac Type Severity Reaction Status Date / Time No Known Allergies Allergy Verified 12/01/24 13:46 Review of Systems 2 Review of Systems: All systems reviewed & are unremarkable except as noted in HPI and below PMFSH Past Medical History Medical History Atherosclerosis of aorta Obesity Generalized anxiety disorder Aortic ectasia, unspecified site Major depressive disorder, recurrent, moderate Cerebral atherosclerosis Anxiety Chronic back pain Arthritis Hyperlipidemia HTN (hypertension) Bronchitis Surgical History Surgical History History of ventral hernia repair History of section History of tubal ligation History of cholecystectomy History of appendectomy Family History Family History Mother Diabetes mellitus Family history of cardiovascular disease Family history of dementia Father Hypertension Cerebrovascular accident Grandparent Family history of Parkinson's disease Sibling Family history of kidney stones Family history of malignant neoplasm of breast in first degree relative Social History Social History Smoking status: Never smoker Alcohol intake: never Substance use: never Substance use type: does not use Do You Feel Safe in your Home?: Yes Lack of Transportation: YES Lack of Food: Sometimes True Current Housing: I Have Housing Concerned About Future Housing: YES Difficulty Paying Gas/Electric Bills: YES Difficulty Paying for Meds: YES Currently Unemployed: No Education: High School Diploma/GED Difficulty w/ Childcare or Family Care: No Living arrangements: with family Occupation/Education: unemployed Gender identity (if verbalized by the patient): Female Sexual Orientation (if Verbalized by the Patient): Straight or Heterosexual Spiritual care concerns: No Exam 2 Narrative: GENERAL: Well appearing, obese, non-toxic, in no acute distress. HEAD: Normocephalic, atraumatic. NECK: Supple. No adenopathy, no masses. RESPIRATORY: Airway patent, respirations nonlabored. Clear to auscultation bilaterally, no rales, rhonchi, wheezing. CARDIOVASCULAR: Regular rate and rhythm without murmurs, rubs, or gallops. Peripheral pulses 2+ and equal bilaterally. ABDOMINAL: Soft, mild RUQ tenderness (where hernia located), nondistended, no hepatosplenomegaly. Normoactive BS. MUSCULOSKELETAL: Moves all extremities. Strength/ROM intact without gross deformities. SKIN: Warm, dry, normal color. No rashes. NEURO: A&O X3. Speech clear. Cranial nerves II-XII intact. No ataxic movements. PSYCHIATRIC: Appropriate mood and affect. Normal interaction. Course Vital Signs Vital signs: Vital Signs Temperature 36.8 C 03/25/25 21:36 Pulse Rate 81 03/25/25 21:36 Respiratory Rate 16 03/25/25 21:36 Pulse Oximetry 99 03/25/25 21:36 Oxygen Delivery Room Air 03/25/25 21:36 Temperature 36.8 C 03/25/25 21:36 Pulse Rate 81 03/25/25 21:36 Respiratory Rate 16 03/25/25 21:36 Blood Pressure 156/71 H 03/26/25 01:16 Pulse Oximetry 98 03/26/25 01:16 Oxygen Delivery Room Air 03/25/25 21:36 MDM - Nausea/Vomiting/Diarrhea MDM Narrative Medical decision making narrative: Patient is a 74-year-old female presents to the ER with an inability to keep down any p.o. intake. She reports her symptoms started around 11:30 today. Patient denies any acute abdominal pain, acute back pain, recent fevers, urinary symptoms, or diarrhea. She denies any recent alcohol or drug use. Patient endorses a history of cholecystectomy, hernia, and high blood pressure. She endorses chronic RUQ abdominal pain that radiates to her R back, which has been evaluated by her PCP. Labs Ordered: CBC, CMP, UA, UDS, COVID/flu/RSV, lipase Imaging Ordered: None necessary Medications Ordered: 1 L normal saline IV bolus, Zofran 4 mg IV, Benadryl 25 mg IV, Reglan 10 mg IV Results: Patient's CBC was unremarkable for acute abnormalities. Her CMP indicates a GFR of 58 but is otherwise unremarkable. Patient's lipase is 52. Her respiratory swab was negative for COVID/flu/RSV. Diagnosis: Gastroenteritis, urinary tract infection Patient Education/Shared MDM: Results of lab work shared with patient. She is requesting to be discharged home at this time. Patient endorses improvement of symptoms following medication administration. She was strongly advised to maintain hydration status upon discharge and follow-up with her PCP as soon as possible. Patient will be discharged home with a prescription for Zofran and Bentyl. Strict return precautions provided. Patient verbalized understanding and is in agreement with plan. Vital signs stable at time of discharge. All questions answered. * Pt left before her urinary results were back. She will be contacted via phone and a prescription for antibiotics will be called into her pharmacy. Differential Diagnosis Differential diagnosis: Likely traveler's diarrhea, food poisoning, gastroenteritis, drug-induced nausea and vomiting and dehydration Lab Data Attestation: I reviewed the patient's lab results. 03/25/25 22:34 03/25/25 22:34 Labs: Lab Results 03/25/25 03/25/25 03/26/25 Range/Units 22:34 22:38 01:00 WBC 5.1 (4.5-10.0) K/mm3 RBC 4.56 (4.2-5.4) M/mm3 Hgb 13.3 (12.0-15.0) g/dL Hct 40.2 (37.0-47.0) % MCV 88.2 (80-100) fl MCH 29.2 (26-34) pg MCHC 33.1 (32-36) g/dl RDW 12.7 (11.5-14.5) % Plt Count 208 D (150-375) k/mm3 MPV 9.1 (7.4-10.4) fl Immature Gran % (Auto) 0.4 (0-0.5) % Neut % (Auto) 56.8 (45.5-73.1) % Lymph % (Auto) 31.7 (18.3-44.2) % [place] % (Auto) 9.3 H (2.6-8.5) % Eos % (Auto) 1.2 (0-4.4) % Baso % (Auto) 0.6 (0.2-1.2) % Lymph # (Auto) 1.63 (0.9-3.2) K/mm3 [place] # (Auto) 0.5 (0.1-0.6) K/mm3 Eos # (Auto) 0.1 (0-0.3) K/mm3 Baso # (Auto) 0.0 (0.0-0.1) K/mm3 Abs Immat Gran (auto) 0.02 (0.00-0.031) K/mm3 Absolute Neuts (auto) 2.9 (1.3-6.7) K/mm3 Absolute Nucleated RBC 0.000 (0.0-0.012) K/mm3 Nucleated RBC % 0.0 (0.0-0.2) % Sodium 143 (137-145) mmol/L Potassium 3.5 (3.4-5.0) mmol/L Chloride 106 (98-107) mmol/L Carbon Dioxide 29 (22-30) mmol/L Anion Gap 8 (4-12) mmol/L BUN 17 (7-17) mg/dL Creatinine 0.95 (0.7-1.0) mg/dL Estim Creat Clear Calc Not Reportable Estimated GFR 58 L (59 - ) Glucose 110 (65-110) mg/dL Calcium 9.5 (8.4-10.2) mg/dL Total Bilirubin 0.9 (0.2-1.3) mg/dL AST 35 (14-36) U/L ALT 19 (6-35) U/L Alkaline Phosphatase 81 (38-126) U/L Total Protein 7.8 (6.3-8.2) g/dL Albumin 4.3 (3.5-5.1) g/dL Lipase 52 (23-300) U/L Urine Color Yellow (Yellow) Urine Appearance Clear (Clear) Urine pH 5.0 (5.0-9.0) Ur Specific [place] 1.023 (1.001-1.035) Urine Protein Negative (Negative) mg/dL Urine Glucose (UA) Negative (Negative) mg/dL Urine Ketones 1+ H (Negative) mg/dL Ur Blood (Man) 2+ H (Negative) Urine Nitrate Negative (Negative) Urine Bilirubin Negative (Negative) Urine Urobilinogen 1.0 (<2.0) mg/dL Leukocyte Esterase Rfl 1+ H (Negative) [place]/UL Urine RBC 11-20 H (0-2) /hpf Urine WBC 11-20 H (0-3) /hpf Ur Squamous Epith Cells None seen (Few) /hpf Urine Bacteria None seen /hpf Urine Casts 0-2 Urine Opiates Screen Negative (Negative) Urine Methadone Screen Negative (Negative) Ur Barbiturates Screen Negative (Negative) Ur Phencyclidine Scrn Negative (Negative) Ur Amphetamine Screen Negative (Negative) U Benzodiazepines Scrn Negative (Negative) Urine Cocaine Screen Negative (Negative) U Cannabinoids Screen Negative (Negative) Influenza A (RT-PCR) Negative (Negative) Influenza B (RT-PCR) Negative (Negative) RSV (RT-PCR) Negative (Negative) SARS-CoV-2 RNA (RT-PCR) Negative (Negative) Discharge Plan Discharge Clinical Impression: Gastroenteritis, Dehydration, mild, Urinary tract infection Patient Disposition: Home Condition: Stable Instructions: Antibiotic Form, Acute Nausea and Vomiting (ED), Urinary Tract Infection in Older Adults (ED) Additional Instructions: Please return to the ER with any worsening symptoms. Follow-up with primary care provider as soon as possible. Take all medications as prescribed, including regularly scheduled medications. You may take Zofran as needed for nausea and Bentyl as needed for abdominal pain. Patient Language: Cambodian Prescriptions: New dicyclomine 20 mg tablet 20 mg PO TID Qty: 10 0RF ondansetron 4 mg tablet,disintegrating 4 mg PO Q8H Qty: 20 0RF nitrofurantoin monohyd/m-cryst [Macrobid] 100 mg capsule 100 mg PO Q12H 5 Days Qty: 10 0RF Rx Instructions: must administer with a meal/food No Action ezetimibe 10 mg tablet 10 mg PO DAILY Qty: 100 1RF losartan 100 mg tablet See Rx Instructions .ROUTE .COMPLEX Qty: 90 3RF Dose Instruction: TAKE 1 TABLET BY MOUTH DAILY Rx Instructions: TAKE 1 TABLET BY MOUTH DAILY Follow-up/Referrals: Yosef Bob MD [Primary Care Provider, [facility]] Time of Disposition: 01:36
[2025-03-25 22:40] LABS: Hematocrit 40.2 % (37.0-47.0); Hemoglobin 13.3 g/dL (12.0-15.0); Immature Granulocyte Percent A 0.4 % (0-0.5); Lymphocytes Absolute Auto 1.63 K/mm3 (0.9-3.2); Mean Corpuscular HGB Conc 33.1 g/dl (32-36); Mean Corpuscular Hemoglobin 29.2 pg (26-34); Mean Corpuscular Volume 88.2 fl (80-100); Nucleated Red Blood Cells Absolute Auto 0.000 K/mm3 (0.0-0.012); Nucleated Red Blood Cells Perc 0.0 % (0.0-0.2); Platelet Count Result 208 k/mm3 (150-375); Red Blood Count 4.56 M/mm3 (4.2-5.4); White Blood Count 5.1 K/mm3 (4.5-10.0)
[2025-03-25] MEDS: ONDANSETRON INJ 4 MG/2 ML VIAL IV PUSH (22:43)
[2025-03-25] MEDS: SODIUM CHLORIDE 0.9% IV 1,000 ML 999 ML IV CONT (22:44)
[2025-03-25 23:00] LABS: Alanine Aminotransferase 19 U/L (6-35); Albumin Level 4.3 g/dL (3.5-5.1); Alkaline Phosphatase 81 U/L (38-126); Anion Gap 8 mmol/L (4-12); Aspartate Amino Transferase 35 U/L (14-36); Bilirubin,Total 0.9 mg/dL (0.2-1.3); Blood Urea Nitrogen 17 mg/dL (7-17); Calcium 9.5 mg/dL (8.4-10.2); Carbon Dioxide 29 mmol/L (22-30); Chloride 106 mmol/L (98-107); Estimated Glomerular Filt Rate 58; Glucose 110 mg/dL (65-110); Lipase 52 U/L (23-300); Potassium 3.5 mmol/L (3.4-5.0); Sodium 143 mmol/L (137-145); Total Protein 7.8 g/dL (6.3-8.2)
[2025-03-25 23:25] LABS: Influenza A QL RT-PCR Negative (Negative); Influenza B QL RT-PCR Negative (Negative); RSV RNA, RT-PCR Negative (Negative); SARS-CoV-2 RNA PCR Negative (Negative)
[2025-03-26] VITALS (10 sets, daily range): BP systolic 136–156; BP diastolic 71–77; PULSE 77; RESP 16; TEMP 36.8; O2SAT 94–100
[2025-03-26 01:09] LABS: Add Urine Microscopic? YES; Appearance Urine Clear (Clear); Glucose Urine UA Negative (Negative); Leukocyte Esterase Ur 1+ LEU/UL (Negative); Nitrate Urine Negative (Negative); Non Pathogenic Casts 0-2; Specific Grav Ur 1.023 (1.001-1.035)
[2025-03-26] MEDS: METOCLOPRAMIDE HCL INJ 10 MG/2 ML VIAL IV PUSH (01:22)
[2025-03-26 01:24] LABS: Cannabinoid Screen Urine Negative (Negative)
== END 2025-03-26 02:04 | disposition home or self-care (01) ==
PROVIDERS: Emergency Provider Registered Nurse; PCP Family Medicine
DX: K52.9 Noninfective gastroenteritis and colitis, unspecified (principal); N39.0 Urinary tract infection, site not specified; E86.0 Dehydration; Z20.822 Contact with and (suspected) exposure to COVID-19; I10 Essential (primary) hypertension; I70.0 Atherosclerosis of aorta; I67.2 Cerebral atherosclerosis; E78.5 Hyperlipidemia, unspecified; M19.90 Unspecified osteoarthritis, unspecified site; Z90.49 Acquired absence of other specified parts of digestive tract; Z79.899 Other long term (current) drug therapy
CPT/HCPCS: 36415; 80053; 80307; 81001; 83690; 85025; 87086; 87637; 96361; 96374; 96375; 99284; J1200; J2405; J2765; J7030

== ENCOUNTER 2025-05-25 08:45 | Outpatient (CLI) | payer MEDICARE, SELFPAY ==
--- NOTE | ~2025-05-25 | MM_ITS ---
EXAMINATION: MM screening shai BI w jerardo HISTORY: Screening TECHNIQUE: Craniocaudal and mediolateral oblique 3-D tomosynthesis images were obtained and synthetic 2-D images were generated. CAD analysis was submitted and interpreted. COMPARISON: Comparison to multiple prior studies sequentially, with oldest reviewed study dated , 02/09/2009 BREAST PARENCHYMAL COMPOSITION: The breasts are almost entirely fatty. FINDINGS: There is no evidence of suspicious mass, calcification, or architectural distortion to suggest malignancy in either breast. IMPRESSION: 1. No mammographic evidence of malignancy. 2. Recommend routine screening mammography in one year. BI-RADS Category 1: Negative Reviewed, dictated and finalized at location B. H SHRINKING TESTER
--- NOTE | ~2025-05-25 | DEXA_ITS ---
Bone Density Report Name: ANNY RAYA Age: 74 Sex: Female Ethnicity: White Date of : 1950 Indication: postmenopausal; screening for osteoporosis; Referring Provider: NOE HAUNG Study: Bone densitometry was performed. Exam Date: May 25, 2025 Accession number: [id number] Bone Density: Region BMD T-score Z-score Classification AP Spine(L1-L4) 0.666 -3.5 -1.2 Osteoporosis Femoral Neck (Left) 0.446 -3.6 -1.7 Osteoporosis Total Hip (Left) 0.635 -2.5 -0.9 Osteoporosis Femoral Neck (Right) 0.497 -3.2 -1.2 Osteoporosis Total Hip (Right) 0.667 -2.3 -0.6 Osteopenia Total Hip Mean 0.651 -2.4 -0.8 Osteopenia World Health Organization criteria for BMD impression classify patients as: Normal (T-score at or above -1.0), Osteopenia (T-score between -1.0 and -2.5), or Osteoporosis (T-score at or below -2.5). 10-year Fracture Risk: FRAX not reported because: Some T-score for Spine Total or Hip Total or Femoral Neck at or below -2.5 Impression: The patient has osteoporosis, based on the Left Femoral Neck T-score. Discussion: INCREASED RISK OF FRACTURE. BONE DENSITY IS UNDESIRABLY LOW AT ONE OR MORE SKELETAL SITES, CONSISTENT WITH POSTMENOPAUSAL OSTEOPOROSIS. This patient's lowest T-score meets the World Health Organization's (WHO) criteria for osteoporosis at one or more sites (T-score -2.5 or below). In untreated patients, the risk of osteoporotic fracture increases approximately two-fold for each 1.0 SD decrease in T-score. Low bone density is not the only risk factor for fracture; also consider factors such as patient's age, frailty or poor health, risk of falling, risk of injury, previous osteoporotic fracture, family history of osteoporosis, cigarette smoking, low body weight, etc. Not everyone with low bone mineral density has osteoporosis; osteomalacia and other metabolic bone disorders should also be considered. Patients who have osteoporosis should be evaluated for specific diseases and conditions (secondary causes) that may cause or contribute to bone loss. The [place] [employer] (AACE) and National Osteoporosis Foundation (NOF) recommend pharmacologic intervention for all postmenopausal women whose T-score is in this range. The patient should follow a healthful lifestyle (good nutrition with adequate calcium and vitamin D, and appropriate weight-bearing exercise). Follow-Up: Consider a repeat BMD and Vertebral Fracture Assessment (VFA) exam in 2 years or sooner if medically necessary, to reassess this patient's status. Reported by: DEVYN on 05/25/2025 9:31:00 AM. Reviewed, dictated and finalized at location A.
== END 2025-05-25 08:46 | disposition home or self-care (01) ==
LOC: ANHFOHIMG 08:48
PROVIDERS: PCP Family Medicine; Visit Provider Family Medicine
DX: Z12.31 Encounter for screening mammogram for malignant neoplasm of breast (principal); Z78.0 Asymptomatic menopausal state; M81.0 Age-related osteoporosis without current pathological fracture; M85.851 Other specified disorders of bone density and structure, right thigh
CPT/HCPCS: 77063; 77067; 77080